=== PATIENT | female | born 1985 | race Caucasian/White ===

== ENCOUNTER 2024-03-12 17:03 | Emergency (ER) | payer MEDICAID, SELFPAY ==
[2024-03-12 17:18] VITALS: BP 158/91; PULSE 88; RESP 18; TEMP 37.4; O2SAT 100; BMI 53.6
--- NOTE | 2024-03-12 17:25 | XR_ITS ---
Examination: Pelvic ultrasound, transabdominal, complete Technique: Transabdominal ultrasound of the pelvis performed using grayscale imaging Date and time of exam: March 12, 2024 1803 hours INDICATIONS: Heavy vaginal bleeding beginning 4 days ago FINDINGS: Uterus 7.8 x 4.7 x 5.8 cm No uterine mass or intrauterine gestation Ovaries obscured by bowel gas IMPRESSION: Limited study secondary to patient's size and bowel gas No uterine mass or intrauterine gestation
--- NOTE | 2024-03-12 17:26 | PD.EDRME ---
Rapid Medical Screening Exam RME Arrival date/time: 03/12/24 17:03 38-year-old female presents the emergency department complaint of vaginal bleeding Chief Complaint: Vaginal Bleeding Time Seen by Provider: 03/12/24 17:14 Vital signs: Vital Signs Temperature 99.3 F 03/12/24 17:18 Pulse Rate 88 03/12/24 17:18 Respiratory Rate 18 03/12/24 17:18 Blood Pressure 158/91 H 03/12/24 17:18 Pulse Oximetry (%) 100 03/12/24 17:18 Oxygen Delivery Method Room Air 03/12/24 17:18
[2024-03-12 17:40] LABS: Basophils # (Auto) 0.1 Thou/mm3 (0.0-0.2); Basophils % (Auto) 0 % (0-2.5); Eosinophils # (Auto) 0.3 Thou/mm3 (0.0-0.5); Eosinophils % (Auto) 3 % (0-10); Hematocrit 40.2 % (36.0-46.0); Hemoglobin 12.5 g/dL (12.0-16.0); Immature Granulocytes % (Auto) 0 % (0-0); Immature Granulocytes Auto 0.04 Thou/mm3 (0.00-0.00); Lymphocytes # (Auto) 3.4 Thou/mm3 (1.0-4.8); Lymphocytes % (Auto) 27 % (10-50); Mean Corpuscular HGB Conc 31.1 g/dl (31.0-37.0); Mean Corpuscular Hemoglobin 22.6 pg (25.0-35.0); Mean Corpuscular Volume 73 fL (80-100); Monocytes # (Auto) 0.8 Thou/mm3 (0.0-0.8); Monocytes % (Auto) 6 % (0-12); Neutrophils # (Auto) 7.9 Thou/mm3 (1.8-7.7); Neutrophils % (Auto) 64 % (37-80); Nucleated Red Blood Cell % 0 /100 WBC (0); Platelet Count 411 Thou/mm3 (140-440); RDW Standard Deviation 43.3 fL (36.4-46.3); Red Blood Count 5.54 Miln/mm3 (4.00-5.20); White Blood Count 12.5 Thou/mm3 (3.6-11.0)
[2024-03-12 17:59] LABS: HCG,Qualitative Serum Negative
[2024-03-12 18:03] LABS: Collection Type, Urine Clean Catch
[2024-03-12 18:06] LABS: Alanine Aminotransferase 56 U/L (10-49); Albumin, Serum 4.4 gm/dL (3.5-5.0); Albumin/Globulin Ratio 1.4 (1.2-2.2); Alkaline Phosphatase 189 U/L (46-116); Anion Gap 5 (7-16); Aspartate Amino Transferase 46 U/L (0-34); BUN/Creatinine Ratio 10 Ratio (12-20); Bilirubin,Total 0.3 mg/dL (0.3-1.2); Blood Urea Nitrogen 9 mg/dL (9-23); Calcium 9.5 mg/dL (8.3-10.6); Calcium (Corrected) 9.5 mg/dL (8.5-10.1); Carbon Dioxide 26.1 mMol/L (20.0-31.0); Chloride 107 mMol/L (98-107); Creatinine (Component) 0.9 mg/dL (0.6-1.3); Estimated Creatinine Clearance 114.5 mL/min (>60); Globulin 3.1 gm/dL (2.3-3.5); Glucose 111 mg/dL (74-106); Lipase 31 U/L (12-53); Osmolality,Calculated 275 (275-295); Potassium 4.2 mMol/L (3.4-5.1); Sodium 138 mMol/L (136-145); Total Protein 7.5 gm/dL (5.7-8.2); eGFR > 60 See Note
[2024-03-12 18:19] LABS: Partial Thromboplastin Time 27.2 Seconds (22.0-36.0); Prothrombin Time 10.6 Seconds (9.0-12.2)
[2024-03-12 18:31] LABS: Bilirubin,Urine Negative (Negative); Blood,Urine 3+ (Negative); Clarity,Urine Clear (Clear/Hazy); Color,Urine Lt-Yellow (Lt Yel-Yel); Culture Indicated,Urine Not Indicated; Glucose, Urine Negative (Negative); Ketones,Urine Negative (Negative); Leukocyte Esterase,Urine Negative (Negative); Nitrite,Urine Negative (Negative); Protein,Urine Negative (Neg - Trace); RBC,Urine 218 /hpf (0-3); Specific Gravity,Urine 1.015 (1.001-1.035); Squamous Epithelial Cell,Urine 1 /hpf (0-5); Urobilinogen,Urine Negative mg/dL (0.0-1.0); WBC,Urine 4 /hpf (0-5)
--- NOTE | 2024-03-12 21:59 | EDNOTE_ITS ---
ED OB Contraction Preg RMI/HPI General Chief complaint: Vaginal Bleeding Stated complaint: Vaginal bleeding X 4 days Time Seen by Provider: 03/12/24 17:14 Arrival date/time: 03/12/24 17:03 RME / HPI RME / HPI Narrative: 38-year-old female patient came in for evaluation regarding vaginal bleeding. Patient's been having vaginal bleeding for the last 4 days, with passing of blood clots. Also complained of pelvic cramping. Patient denies any dizziness. Denies any other complaints no medications taken prior to arrival. Related Data Home Medications ?Medication ?Instructions ?Recorded ?Confirmed hydroxyzine HCl 25 mg tablet 25 mg PO Q6H PRN Itching 02/13/22 02/13/22 labetalol 100 mg tablet 100 mg PO BID 02/13/22 02/13/22 Previous Rx's ?Medication ?Instructions ?Recorded meloxicam 7.5 mg tablet 7.5 mg PO QDAY #10 tabs 01/29/23 Allergies Allergy/AdvReac Type Severity Reaction Status Date / Time No Known Allergies Allergy Verified 01/29/23 08:10 Review of Systems Review of Systems Narrative Review of Systems: Review of system reviewed and within normal limits except mentioned in HPI ED Exam Narrative Physical exam: VITAL SIGNS: Reviewed. GENERAL APPEARANCE: Alert and interactive, follows commands, no acute distress, HEAD AND FACE: Non-traumatic. ENT: PERRL, pink conjunctivitis, eyelid no trauma, Mucous membrane moist. NECK: Supple, nontender, no nuchal rigidity. CHEST: No tenderness, no crepitus, no paradoxical movement, no retractions. LUNGS: Clear, well ventilated, symmetric, no rales, no wheezing, no ronchi, no stridor, good breath sounds bilaterally. HEART: Regular rate, regular rhythm, no murmur, no gallops. ABDOMEN: Soft, positive bowel sounds, nondistended, no guarding, nontender, no rebound, no masses, RECTAL: Deferred. GENITAL: Deferred. NEUROLOGICAL: Gross motor function intact sensory function intact, Appropriate for age. MUSCULOSKELETAL: low back nontender, full range of motion. EXTREMITIES: Nontender, full range of motion. SKIN: Color pink, dry, no rash, no lacerations, no abrasions, no contusions. LYMPHATICS: Deferred. Course Quality Measures none Orders Category Date Time Status US pelvic complete Stat Exams 03/12/24 17:25 Completed CBC Stat Lab 03/12/24 17:31 Completed Comprehensive Metabolic Panel Stat Lab 03/12/24 17:31 Completed HCG,Qualitative Serum Stat Lab 03/12/24 17:31 Completed Lipase Stat Lab 03/12/24 17:31 Completed PT [Prothrombin Time with INR] Stat Lab 03/12/24 17:31 Completed PTT [Partial Thromboplastin Time] Stat Lab 03/12/24 17:31 Completed UA, C/S IF [Urinalysis, C/S if Indicated] Stat Lab 03/12/24 17:44 Completed Vital Signs Vital signs: Vital Signs Temperature 99.3 F 03/12/24 17:18 Pulse Rate 88 03/12/24 17:18 Respiratory Rate 18 03/12/24 17:18 Blood Pressure 158/91 H 03/12/24 17:18 Pulse Oximetry (%) 100 03/12/24 17:18 Oxygen Delivery Method Room Air 03/12/24 17:18 Vaginal Bleeding MDM Narrative MDM Narrative: Patient's laboratory workup all came back unremarkable. No sign of anemia noted ultrasound of the pelvis came back unremarkable. She is not results discussed with her. Patient data External records reviewed:: None Clinical information provided by:: none Social determinants that could affect healthcare access:: none Patient has the following chronic illnesses:: None How is presenting disease/condition affected by chronic disease/condition?: no chronic disease Evaluation data The following diagnostics were reviewed and interpreted by me:: lab results and radiology exam(s) Lab and/or radiology exams considered but not ordered:: None Interpretation Summary: None Medications / Prescriptions Medications or Prescriptions considered but not ordered:: None Medication administrations:: None Consultations Consultation(s) initiated? (list below): No Diagnosis Vaginal Bleeding Differential Diagnosis: dysfunctional uterine bleeding, menometrorrhagia and vaginal bleeding Most likely diagnosis given after review of the tests above:: Vaginal bleeding Admission Indicated Admission indicated?: not indicated Admission Request Was there a request for admission?: No Disposition Plan Disposition Plan: Discharge Discharge Attestation Discharge Attestation: The patient was given an opportunity to ask questions and understood the discharge instructions. Discharge instructions specifically effects, indications for sooner follow up or return to the emergency department, and the expected course of current diagnosis. Patient condition: Stable Discharge Plan Plan Patient Disposition: HOME (Self Care) Disposition Comment: stable Prescriptions/Referrals Prescriptions/Med Rec: No Action hydroxyzine HCl 25 mg tablet 25 mg PO Q6H PRN (Reason: Itching) Patient Comments: TAKE 1 TABLET BY MOUTH EVERY 6 HOURS NEEDED FOR 30 DAYS labetalol 100 mg tablet 100 mg PO BID Patient Comments: TAKE 1 TABLET BY MOUTH TWICE A DAY meloxicam 7.5 mg tablet 7.5 mg PO QDAY Qty: 10 0RF Referrals: Jose Pastrana MD [Primary Care Provider] - In 1 week Problem List Clinical Impression: Vaginal bleeding Patient/Caregiver Discharge Instructions Discharge Activity: activity as tolerated Education Materials: Understanding Uterine Bleeding Additional Instructions: Thank you for the opportunity for serving you today. You are stable for discharged . You are advised to: Follow-up with your PCP in 1 to 2 days Return to ED for worsening of symptoms Increase oral fluids You may take [id number] Tylenol or Motrin as needed for pain Print Language: Yakut Stand Alone Forms: Maryuri Award Info., Patient Portal Info Letter [facility] Supervising Physician [facility] Supervising Physician: MD Cami
== END 2024-03-12 22:07 | disposition home or self-care (01) ==
PROVIDERS: Nurse Practitioner Primary Care; Emergency Provider Emergency Medicine; PCP Family Medicine
DX: N93.9 Abnormal uterine and vaginal bleeding, unspecified (principal)
CPT/HCPCS: 36415; 76856; 80053; 81001; 83690; 84703; 85025; 85610; 85730; 99284